=== PATIENT | female | born 1970 | race Caucasian/White ===

== ENCOUNTER 2018-08-05 10:01 | Observation (INO) | payer SELFPAY ==
--- NOTE | 2018-08-05 10:39 | RAD ---
CHEST 1 VIEW: Date: 08/05/18 HISTORY: Chest pain. COMPARISON: 08/06/17. FINDINGS: Cardiac silhouette is magnified by projection. Pulmonary vasculature is unremarkable. Mediastinum is midline. No lobar consolidation or evidence of pneumothorax. media monitor leads overlie the chest. IMPRESSION: No active cardiopulmonary abnormalities are demonstrated. POS: [facility]
[2018-08-05 10:50] LABS: #Basophils 0.1 thou/uL (0.0-0.2); #Eosinphils 0.3 thou/uL (0.0-0.7); #Monocytes 0.6 thou/uL (0.11-0.59); #Neutrophils 8.4 thou/uL (1.40-6.50); %Basophils 0.6 % (0.0-1.0); %Eosinophils 2.3 % (0.0-10.0); %Lymphocytes 24.4 % (21.0-51.0); %Neutrophils 67.7 % (42.0-75.0); Hemoglobin 15.8 g/dL (12.0-16.0); Mean Corpuscular HGB CONC 31.9 g/dL (32.0-36.0); Mean Corpuscular Hemoglobin 29.5 pg (27.0-31.0); Mean Corpuscular Volume 92.6 fL (78.0-98.0); Mean Platelet Volume 8.9 fL (7.4-10.4); Platelet Count 307 thou/uL (130-400); RBC Distribution Width 12.3 % (11.5-14.5); Red Blood Cell (RBC) Count 5.36 mill/uL (4.20-5.40); White Blood Cell (WBC) Count 12.4 thou/uL (4.8-10.8)
--- NOTE | 2018-08-05 11:04 | CT ---
HEAD CT WITHOUT CONTRAST: Date: 08/05/18 HISTORY: Intermittent feeling sweaty and dizzy with left leg weakness. COMPARISON: None. FINDINGS: There appears to be malacic and gliotic change involving a remote insult involving the right frontal and near the vertex. Remainder of the right cerebrum and left cerebrum demonstrate preservation of co rtical carney-white matter differentiation. No evidence of hydrocephalus. Adequate aeration of the sinu ses and mastoid air cells. Calvarium is intact. IMPRESSION: Presumed remote insult involving the right cerebrum. Nonemergent MRI is recommended for further evalu ation. POS: [facility]
[2018-08-05 11:20] LABS: ALT (SGPT) 37 U/L (8-55); AST (SGOT) 22 U/L (5-34); Albumin 4.4 g/dL (3.5-5.0); Alkaline Phosphatase 119 U/L (40-150); Anion Gap 16 mmol/L (10-20); BUN (Urea Nitrogen) 16 mg/dL (7.0-18.7); Bilirubin, Total 0.3 mg/dL (0.2-1.2); Calc. Creatinine Clearance 0 mL/min (70-130); Calcium 9.6 mg/dL (7.8-10.44); Carbon Dioxide 22 mmol/L (22-29); Chloride 107 mmol/L (98-107); Estimated GFR-MDRD 80; Globulin 3.6 g/dL (2.4-3.5); Glucose 82 mg/dL (70-105); Potassium 4.4 mmol/L (3.5-5.1); Sodium 141 mmol/L (136-145)
[2018-08-05] MEDS ORDERED: Aspirin Chewable 81 MG TAB ONE (11:38)
[2018-08-05 12:00] LABS: Medtox Reader # READER 4; THC/Cannabinoid Screen Detected (NotDetected)
[2018-08-05 12:01] LABS: Amphetamine Detected (NotDetected); Barbiturates Screen Not Detected (NotDetected); Benzodiazepine Screen Not Detected (NotDetected); Cocaine Metabolite Screen Not Detected (NotDetected); Medtox Control Line Valid? VALID (VALID); Methadone Not Detected (NotDetected); Methamphetamine Detected (NotDetected); Opiate Screen Not Detected (NotDetected); Oxycodone Screen Not Detected (NotDetected); Phencyclidine (PCP) Not Detected (NotDetected); Tricyclic Screen Not Detected (NotDetected)
[2018-08-05] MEDS ORDERED: Nitroglycerin 0.4 MG TAB (25 Tab Bottle) SL PRN (16:23)
--- NOTE | 2018-08-05 17:09 | MRI ---
MRI BRAIN NONCONTRAST: Date: 08/05/[address] same date. INDICATION: Left lower extremity paralysis. FINDINGS: There is focal cavitary encephalomalacia of the right parietal lobe with surrounding gliosis. There i s mild chronic microvascular ischemic disease of the cerebral white matter. Mild hemosiderin depositi on is present at the site of cavitary encephalomalacia. No acute territorial infarctions, mass effect , or midline shift. Ventricular system is normal in size. There is scattered paranasal sinus mucosal thickening. No significant abnormality of the imaged skull base flow-voids. IMPRESSION: 1. No acute territorial infarction or mass effect. 2. Cavitary encephalomalacia of the right parietal lobe superimposed upon microvascular ischemic dis ease of the cerebral white matter. POS: [facility]
[2018-08-05 18:12] VITALS: BMI 26.6
[2018-08-05] MEDS: Acetaminophen 325 MG TAB PO PRN (21:37)
--- NOTE | 2018-08-05 23:23 | HP ---
CHIEF COMPLAINT: Chest pain and left leg paralysis. HISTORY OF PRESENT ILLNESS: This patient is a 47-year-old female, who presented to the emergency department with multiple complaints. The patient's primary complaints were paralysis in her left lower extremity. The patient reports that over the past 3 to 4 weeks, she has been having fairly progressive weakness in her left lower extremity and today, she awakened with inability to use the leg at all. She states that it feels like a heavy sandbag that is just deadweight, has decreased sensation. She has no ability to move it in anyway at all. She denies any injury to the leg or her back. She also reported chest pain. She reports the pain is intermittent, primarily in the upper chest. With this, she has some sensation of a bad taste coming up in the back of her throat. The pain sometimes is a little bit to the left. She does not have associated shortness of breath or vomiting, but she does report intermittent feeling of being diaphoretic and dizzy. She describes the chest pain is being sharp in nature. REVIEW OF SYSTEMS: The patient has numerous positive reviews of systems. She reports some generalized fatigue and abnormal taste, which was associated with the chest pain. She has significant light sensitivity. She reports some mild difficulty swallowing only today, some longstanding issues with constipation. She reports some shortness of breath yesterday, lightheadedness today, numbness and tingling in left lower extremity. She also reports some light sensitivity. She also reports some pain in her left leg at times. PAST MEDICAL HISTORY: Notable for prior stroke. The patient reports that occurred at this facility in 2012, described it as a hemorrhagic stroke following a traumatic event, but have no records of that in our system even though I have records before and after. She has a history of hypertension, hyperlipidemia, coronary artery disease with stent, hyperlipidemia. She does have a history of anxiety and depression. PAST SURGICAL HISTORY: Hysterectomy, appendectomy, ovarian cyst, cardiac stent. SOCIAL HISTORY: The patient denies alcohol use. She does admit to using marijuana routinely, says she has done it for a very long time. She also reports that she used a lot of cocaine in the 90s, but does not use any now. She denies using amphetamine or methamphetamine even when confronted with a positive drug screen. She is . Her is currently out of town, will be out of town until November. 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 She is a full code. Her is her surrogate decision maker. CURRENT MEDICATIONS: Aspirin 81 mg daily. The patient reports that she also takes calcium supplements, but she is "all natural" and does not generally use medications. ALLERGIES: NONE. PHYSICAL EXAMINATION: VITAL SIGNS: BP 138/83, pulse 73, respirations 16, O2 saturation 99% on room air. GENERAL APPEARANCE: Age-appropriate female. She is very pleasant, awake, alert , oriented. She appears her stated age and is in no distress. HEENT: PERRL. Pupils are slightly sluggish. She has no OP lesions. NECK: Supple and symmetric. No lymphadenopathy, JVD, or carotid bruits. HEART: Regular rate and rhythm without murmurs, gallops, or rubs. LUNGS: Clear to auscultation bilaterally. ABDOMEN: Soft, nontender, and nondistended. Positive bowel sounds. No masses. No organomegaly. EXTREMITIES: Left lower extremity has no cyanosis, clubbing, or edema nor does the right. She has no movement in the left lower extremity, but normal muscle tone. NEUROLOGICAL: The patient appears to be generally appropriate and socially appropriate. Her left lower extremity has no movement. She has decreased sensation to palpation. She reports that she cannot flex the muscles in her toes, ankles, calves, thighs, hips or her buttocks. She is able to flex her abdominal muscles. She does not appear to have a significant Babinski on my exam on the left, however, previous exams today did demonstrate upgoing Babinski reflex. She appears to have preserved reflexes. LABORATORY DATA: White count 12.4, hemoglobin 15.8, platelets 307. Chemistries normal. Urine drug screen positive for amphetamine, methamphetamine, and cannabinoid. Chest x-ray, no active cardiopulmonary disease. CT scan of the brain shows presumably remote insult involving the right cerebrum with recommended followup MRI. IMPRESSION AND PLAN: 1. Left lower extremity paralysis with hypoesthesia, unclear etiology. It is unusual that the patient cannot use flexors or extensors or even fire any muscles from her toes up to the buttock area. We will obtain an MRI of her brain. Consult Neurology. If MRI of the brain is negative, could consider spinal imaging as well. 2. Chest pain, unclear etiology. The patient does have significant history of coronary artery disease far back as 2013. She does not take statins and such, because she is trying to avoid medications and stay natural apparently. Therefore, she is presumably still at some risk. She does continue to smoke cigarettes and marijuana, but her symptoms sound more like GI related. We will start her on PPI. Once the Neurology evaluation is settled, she may need a stress test given her cardiac history. We will also order nitroglycerin for recurrent acute chest pain. 3. Drug abuse. The patient admits to using cannabis regularly. She denies use of methamphetamines, although drug screen is positive. Possible, her marijuana could be laced with methamphetamine or she is not being entirely straightforward about her drug use. We will continue to monitor. 4. Mild leukocytosis, does not appear to be reflective of any infectious etiology. Job ID: [id number] MTDD
[2018-08-06 05:53] LABS: #Eosinphils 0.2 thou/uL (0.0-0.7); #Lymphocytes 2.5 thou/uL (1.20-3.40); #Monocytes 0.5 thou/uL (0.11-0.59); #Neutrophils 4.3 thou/uL (1.40-6.50); %Basophils 0.5 % (0.0-1.0); %Eosinophils 3.3 % (0.0-10.0); %Lymphocytes 33.1 % (21.0-51.0); %Monocytes 6.9 % (0.0-10.0); %Neutrophils 56.3 % (42.0-75.0); Hemoglobin 14.1 g/dL (12.0-16.0); Mean Corpuscular HGB CONC 31.7 g/dL (32.0-36.0); Mean Corpuscular Hemoglobin 29.6 pg (27.0-31.0); Mean Corpuscular Volume 93.3 fL (78.0-98.0); Mean Platelet Volume 6.9 fL (7.4-10.4); Platelet Count 266 thou/uL (130-400); RBC Distribution Width 11.9 % (11.5-14.5); Red Blood Cell (RBC) Count 4.74 mill/uL (4.20-5.40); White Blood Cell (WBC) Count 7.7 thou/uL (4.8-10.8)
[2018-08-06 06:12] LABS: Anion Gap 12 mmol/L (10-20); BUN (Urea Nitrogen) 15 mg/dL (7.0-18.7); Calc. Creatinine Clearance 89 mL/min (70-130); Calcium 9.3 mg/dL (7.8-10.44); Carbon Dioxide 29 mmol/L (22-29); Chloride 107 mmol/L (98-107); Estimated GFR-MDRD 79; Glucose 98 mg/dL (70-105); Potassium 4.5 mmol/L (3.5-5.1); Sodium 143 mmol/L (136-145)
[2018-08-06] MEDS ORDERED: Enoxaparin Sodium 40 MG/0.4 ML SYRINGE SC SCH (09:00)
[2018-08-06] MEDS: Acetaminophen 325 MG TAB PO PRN (09:16)
[2018-08-06 15:51] VITALS: BP 126/77; TEMP 97.8
--- NOTE | 2018-08-06 16:31 | CON ---
DATE OF CONSULTATION: 08/06/2018 CONSULTING PHYSICIAN: Hospitalist Service. IMPRESSION: Psychogenic paralysis. PLAN: Discharge to her discretion. HISTORY OF PRESENT ILLNESS: Ms. 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 She came in with complaints that the left leg was feeling like a "bag of sand." There was no associated pain. Despite this complaint, she has been able to walk on it. She had an MRI of the brain done, which showed an area of encephalomalacia involving the right occipital lobe. There are no acute ischemic changes present. Her lab work was otherwise only notable for the findings that she had positive methamphetamines, amphetamine, and marijuana. Vital signs have been stable. She has been afebrile. PAST HISTORY: Otherwise negative. ALLERGIES: NONE REPORTED. SOCIAL HISTORY: Drug abuse. FAMILY HISTORY: Noncontributory. MEDICATION LIST: None. REVIEW OF SYSTEMS: A 10-system review of systems is otherwise unremarkable. PHYSICAL EXAMINATION: GENERAL: She is a well-nourished, middle-aged woman, lying in bed, in no acute distress. VITAL SIGNS: Blood pressure 103/74, pulse 93, respirations 16, and temperature 99.3. HEENT: Pupils are equal and reactive. Conjunctivae clear. Oropharynx clear. NEUROLOGIC: She was alert and conversant. Her speech is fluent and clear. She had no facial asymmetry. Eye movements were intact. Motor exam in the upper extremities was normal. Lower extremity testing initially showed zero movement in the left leg to command. When I performed the Fang maneuver to test her for feigning weakness, she was able to suspend the left leg in the air and did not have an explanation for the difference in her response. Sensation was subjectively decreased in the left leg. Gait was not tested. No abnormal movements were seen. SUMMARY: A middle-aged drug abuser with feigning weakness in the left leg. See any need for further neurologic workup you can make disposition if she feels appropriate. Job ID: [id number]
--- NOTE | 2018-08-07 11:42 | DIS ---
DATE OF ADMISSION: 08/05/2018 DATE OF DISCHARGE: 08/06/2018 DISCHARGE DIAGNOSES: 1. Left lower extremity paralysis, possibly a psychogenic. 2. Chest pain, likely reflux related. 3. History of prior right parietal cerebrovascular accident. 4. History of coronary artery disease. 5. History of chronic cannabis use. 6. Leukocytosis appearing to be benign. 7. History of significant cocaine abuse remotely with erosion of the nasal septum. HISTORY OF PRESENT ILLNESS: This patient is a 47-year-old female who has a history of prior CVA affecting her right hemisphere with some minimal left residual weakness, who is generally fully functional. The patient also had a history of coronary artery disease in 2013 requiring angioplasty and bare metal stent. The patient presented via the emergency department. She reported progressive problems with her left lower extremity over the prior month, which ultimately culminated in pain and weakness to the point that she felt like she was no longer able to move it at all. She also was reporting chest pain that was in the upper chest and associated with a bad taste occurring in the back of her throat. The patient's initial evaluation in the emergency department did a CT scan of the brain, which revealed presumed remote insult involving her right cerebrum. She also had a chest x-ray which was unremarkable. The patient's initial exam was noted to reveal complete loss of function in the entire left lower extremity. The patient was unable to flex or extend or even fire any muscle groups from her toes up to her trunk on the left. There were some indication that the patient was actually moving the leg at times inadvertently as observed by the staff in the emergency department. HOSPITAL COURSE: The patient was admitted into observation status. She had a followup MRI of her brain, which revealed no acute territorial infarction or mass effect. There was a cavitary encephalomalacia in the right parietal lobe superimposed upon microvascular ischemic changes of the cerebral white matter. The patient was seen by physical therapy. On the 2nd day, she was able to actually have some movement in her leg and when I actually came and see the patient, she had flexed her knee and hip to her leg being bent at about a 45-degree angle. On subsequent exam, she demonstrated inability to reproduce that action for me. However, nursing reported that the patient actually cannot walk to the bathroom at some point. Neurology saw the patient and felt that her symptoms were more psychogenic in nature and more comfortable before discharge. The patient's chest pain was felt to be more likely related to reflux. She was started on a PPI and her symptoms completely abated. She had negative troponins x3. No acute ischemic changes on EKG. The patient was counseled at length. She is generally more prone to try natural treatments rather than medications. She was only taking aspirin at presentation and had not been taking any statin. She certainly has some risk of recurrent coronary artery disease as a result of that. However, it did not appear that was the cause of her current symptoms. We discussed the situation in detail. She felt that she was comfortable being discharged. She thought she was going to successfully get on her son's insurance where she would be able to follow up as an outpatient with Cardiology and get the recommended stress test. She was also willing to take statin given my explanation. We agreed that we would keep the dose low. PHYSICAL EXAMINATION: VITAL SIGNS: On the day of discharge, temperature is 97.8, pulse 96, respirations 18, O2 saturation 99% on room air, BP is 126/77. GENERAL APPEARANCE: Age-appropriate female, in no distress. She is awake, alert, oriented, pleasant, cooperative. HEART: Regular rate and rhythm without murmurs. LUNGS: Clear bilaterally. ABDOMEN: Soft, nontender, and nondistended. EXTREMITIES: Warm and dry with good pulses. She has some persistent weakness in her left lower extremity with a waxing and waning physical exam. DISPOSITION: The patient is discharged to home. ACTIVITY: As tolerated. DIET: She has no dietary restrictions. DISCHARGE MEDICATIONS: She will continue her aspirin 81 mg p.o. daily. She will also be on atorvastatin 10 mg p.o. daily. FOLLOWUP: She is to establish with a PCP and follow up with Cardiology in order to consider a repeat stress testing. She can return to the emergency department should she have any problems prior to that time. Job ID: [id number]
== END 2018-08-06 16:38 | disposition home or self-care (01) ==
LOC: ERS 10:01 → ERHOLD 11:44 → INTOOBSV 11:44 → 2SE 17:41
PROVIDERS: ADMIT Internal Medicine; ATTEND Internal Medicine
DX: G83.14 Monoplegia of lower limb affecting left nondominant side (principal); R07.9 Chest pain, unspecified; I25.10 Atherosclerotic heart disease of native coronary artery without angina pectoris; I10 Essential (primary) hypertension; E78.5 Hyperlipidemia, unspecified; F41.9 Anxiety disorder, unspecified; F32.9 Major depressive disorder, single episode, unspecified; F14.10 Cocaine abuse, uncomplicated; F15.10 Other stimulant abuse, uncomplicated; D72.829 Elevated white blood cell count, unspecified; Z86.73 Personal history of transient ischemic attack (TIA), and cerebral infarction without residual deficits; Z95.5 Presence of coronary angioplasty implant and graft; Z90.710 Acquired absence of both cervix and uterus; Z90.49 Acquired absence of other specified parts of digestive tract; Z79.82 Long term (current) use of aspirin; Z79.899 Other long term (current) drug therapy; Z98.890 Other specified postprocedural states
CPT/HCPCS: 36415; 70450; 70551; 71045; 80048; 80053; 80306; 84484; 85025; 90471; 90686; 90732; 93005; 96372; G0008; G0009; G0378; J1650